=== PATIENT | female | born 1970 | race Two or more races ===

== ENCOUNTER 2023-12-30 21:36 | Emergency (ER) | payer OTHER ==
[~2023-12-30] VITALS: Ht 154.9 cm; Wt 65.8 kg
[2023-12-30] MEDS ORDERED: FAMOTIDINE/PF INJ 20 MG/2 ML VIAL IV ONE (22:02)
[2023-12-30] MEDS ORDERED: ONDANSETRON HCL/PF 4 MG/2 ML VIAL ONE ×2 (22:02→23:34)
[2023-12-30] MEDS: IV NS 0.9% 1,000 ML BAG IV ONE ×2 (22:07→23:39)
[2023-12-30] MEDS: FAMOTIDINE/PF INJ 20 MG/2 ML VIAL IV ONE (22:07)
[2023-12-30] MEDS: ONDANSETRON HCL/PF 4 MG/2 ML VIAL IVP ONE (22:08)
[2023-12-30 22:36] LABS: BASOPHILS # (AUTO) 0.1 K/uL (0.0-0.2); BASOPHILS % (AUTO) 0.8 % (0.0-2.0); EOSINOPHILS # (AUTO) 0.1 K/uL (0.0-0.7); EOSINOPHILS % (AUTO) 0.3 % (0.0-6.0); HEMATOCRIT 46 % (33-45); HEMOGLOBIN 15.9 g/dL (11.5-14.8); LYMPHOCYTES # (AUTO) 2.2 K/uL (0.8-4.8); LYMPHOCYTES % (AUTO) 12.1 % (20.0-44.0); MEAN CORPUSCULAR HEMOGLOBIN 32 PG (26.0-33.0); MEAN CORPUSCULAR HGB CONC 34 g/dl (31.0-36.0); MEAN CORPUSCULAR VOLUME 94 fL (82-100); MONOCYTES # (AUTO) 0.9 K/uL (0.1-1.30); MONOCYTES % (AUTO) 5.1 % (2.0-12.0); NEUTROPHILS # (AUTO) 15.2 K/uL (1.8-8.9); NEUTROPHILS % (AUTO) 81.7 % (43.0-81.0); PLATELET COUNT (AUTO) 442 K/uL (150-450); RED BLOOD CELL COUNT(AUTO) 4.92 MIL/uL (4.0-5.2); RED CELL DISTRIBUTION WIDTH 13.9 % (11.5-15.0); WHITE BLOOD COUNT (AUTO) 18.5 K/uL (4.3-11.0)
[2023-12-30 22:41] LABS: APPEARANCE,URINE CLEAR (CLEAR); BILIRUBIN,URINE 1+ (NEGATIVE); BLOOD, URINE 3+ Ery/uL (NEGATIVE); COLOR,URINE DARK YELLOW (YELLOW); KETONES,URINE 1+ mg/dL (NEGATIVE); LEUKOCYTE ESTERASE ,URINE NEGATIVE (NEGATIVE); NITRITE, URINE NEGATIVE (NEGATIVE); PH,URINE 6.5 (5.0-8.0); PROTEIN,URINE 2+ mg/dl (NEGATIVE); UGLUCOSE NEGATIVE (NEGATIVE)
[2023-12-30 22:45] LABS: CALCIUM, SERUM 9.9 mg/dL (8.5-10.1); CARBON DIOXIDE 21 mmol/L (21-32); CHLORIDE 104 mmol/L (98-107); CREATININE 1.1 mg/dL (0.6-1.3); GLUCOSE 178 mg/dL (74-106); POTASSIUM 3.7 mmol/L (3.5-5.1); SODIUM SERUM 143 mmol/L (136-145); UREA NITROGEN, BLOOD 14 mg/dL (7-18)
[2023-12-30 22:55] LABS: PREGNANCY TEST URINE QUAL NEGATIVE (NEGATIVE)
[2023-12-30 23:00] LABS: ADD URINE CULTURE NO; ALANINE AMINOTRANSFERASE 37 U/L (12-78); ALBUMIN 3.9 g/dL (3.4-5.0); ALKALINE PHOSPHATASE 102 U/L (46-116); ASPARTATE AMINOTRANSFERASE 18 U/L (15-37); BACTERIA,URINE Rare /HPF (None Seen); BILIRUBIN,DIRECT 0.2 mg/dL (0.0-0.2); BILIRUBIN,TOTAL 0.7 mg/dL (0.2-1.0); LIPASE 27 U/L (16-77); RBC,URINE 21-50 /HPF (0-2); SQUAMOUS EPITHELIAL CELL,UR Rare /HPF (None Seen); TOTAL PROTEIN, SERUM 8.4 g/dL (6.4-8.2)
[2023-12-30] MEDS ORDERED: IOHEXOL-300 100 ML VIAL IV ONE (23:09)
[2023-12-30] MEDS ORDERED: IV NS 0.9% 250 ML IV ONE (23:09)
[2023-12-30 23:11] LABS: LACTIC ACID 3.4 mmol/L (0.4-2.0)
[2023-12-30] MEDS ORDERED: LORAZEPAM INJ 2 MG/ML VIAL ONE (23:35)
[2023-12-30] MEDS: ONDANSETRON HCL/PF 4 MG/2 ML VIAL IV ONE (23:39)
[2023-12-30] MEDS: LORAZEPAM INJ 2 MG/ML VIAL IV ONE (23:39)
[2023-12-31] MEDS ORDERED: PIPERACI/TAZO 3.375GM/D5W 50ML PB IV ONE (00:01)
[2023-12-31] MEDS: PIPERACILLIN /TAZOBACTAM 3.375 G in IV D5W 50 ML IV ONE (00:12)
[2023-12-31] MEDS ORDERED: LORAZEPAM INJ 2 MG/ML VIAL ONE (02:17)
[2023-12-31] MEDS: LORAZEPAM INJ 2 MG/ML VIAL IV ONE (02:20)
[2023-12-31] MEDS ORDERED: METOCLOPRAMIDE HCL 10 MG/2 ML VIAL ONE (03:16)
[2023-12-31] MEDS: METOCLOPRAMIDE HCL 10 MG/2 ML VIAL IV ONE (03:20)
[2023-12-31 10:13] VITALS: BP 131/81; TEMP 98; O2SAT 99
== END 2023-12-31 10:14 | disposition short-term general hospital (02) ==
LOC: ER 21:42
DX: N39.0 Urinary tract infection, site not specified (principal); R11.2 Nausea with vomiting, unspecified; R19.7 Diarrhea, unspecified; F31.9 Bipolar disorder, unspecified; D72.829 Elevated white blood cell count, unspecified; R06.00 Dyspnea, unspecified; R07.9 Chest pain, unspecified
CPT/HCPCS: 99285; 74177; 96375 ×2; 96361; 71045; 93005; 96376 ×2; 85025; 80048; 87086; 83605 ×2; 83690; 80076; 84703; 81001; 36415 ×2; 84484; 96365; J2060 ×2; J3490; J2405 ×2; J7030 ×2; J7050; Q9967; J2765; J2543 ×2; J7060